=== PATIENT | male | born 1930 | race Asian ===

== ENCOUNTER 2019-08-13 08:30 | Inpatient (IN) | payer MEDICARE, OTHER ==
[~2019-08-13] VITALS: Ht 162.6 cm; Wt 57.8 kg
[2019-08-13 09:02] LABS: Basophils # (auto) 0 10 ^3/uL (0-0.2); Basophils % (auto) 0.4 % (0.0-2.0); Eosinophils # (auto) 0.1 10 ^3/uL (0-0.8); Eosinophils % (auto) 0.8 % (0.0-7.0); Hematocrit 35.9 % (41.0-53.0); Hemoglobin 12.3 g/dL (13.5-17.5); Lymphocytes # (auto) 1.1 10 ^3/uL (0.4-5.4); Lymphocytes % (auto) 14.6 % (10.0-50.0); Mean Corpuscular Hgb Conc. 34.4 g/dL (32.0-36.0); Mean Corpuscular Volume 90.2 fL (80.0-100.0); Monocytes # (auto) 0.4 10 ^3/uL (0-1.3); Monocytes % (auto) 5.5 % (0.0-12.0); Neutrophils # (auto) 6.1 10 ^3/uL (1.6-8.6); Neutrophils % (auto) 78.7 % (37.0-80.0); Nucleated Red Blood Cells % 0.1 %; Platelet Count (auto) 287 10^3/uL (140-450); Red Blood Cells 3.97 10^6/uL (4.5-5.90); Red Cell Distribution Width 13.7 % (11.8-14.3); White Blood Cell 7.8 10^3/uL (4.4-10.8)
[2019-08-13 09:21] LABS: Alanine Aminotransferase 9 U/L (16-61); Albumin 2.6 g/dL (3.4-5.0); Anion Gap 6 (5-15); Aspartate Aminotransferase 6 U/L (15-37); BUN/Creatinine Ratio 20.2; Blood Urea Nitrogen 21 mg/dL (7-18); Calcium 8.1 mg/dL (8.5-10.1); Carbon Dioxide 23 mmol/L (21-32); Chloride 106 mmol/L (98-107); GFR African American 88 mL/min; GFR Non-African American 73 mL/min; Glucose 214 mg/dL (74-106); Potassium 3.7 mmol/L (3.5-5.1); Sodium 135 mmol/L (136-145)
[2019-08-13 09:25] LABS: Alkaline Phosphatase 101 U/L (45-117); Bilirubin, Total 0.6 mg/dL (0.2-1.0); Total Protein 8.4 g/dL (6.4-8.2)
[2019-08-13 09:48] LABS: INR 1.06 (0.9-1.15); Partial Thromboplastin Time 28.5 sec (23.64-32.05)
[2019-08-13] MEDS ORDERED: ACETAMINOPHEN 500 MG TAB PO PRN (12:45)
[2019-08-13] MEDS ORDERED: hydrALAZINE HCL 20 MG/ML VL IV PRN (12:45)
[2019-08-13] MEDS ORDERED: MORPHINE SULF INJ 2 MG/ML SYRINGE 1ML IV PRN ×2 (12:45)
[2019-08-13] MEDS ORDERED: ONDANSETRON HCL 4 MG/2 ML VIAL IV PRN (12:45)
[2019-08-13] MEDS ORDERED: DEXTROSE (50%) 50ML SYRG IV PRN (12:45)
[2019-08-13] MEDS ORDERED: NITROGLYCERIN 0.4 MG SL TAB SL PRN (12:45)
[2019-08-13] MEDS ORDERED: FAMOTIDINE 20 MG TAB PO ONE (13:15)
[2019-08-13] MEDS ORDERED: ASPirin-EC 81 mg tab PO ONE (13:15)
[2019-08-13] MEDS ORDERED: METOPROLOL TARTRATE 25 MG TAB PO ONE (13:15)
[2019-08-13] MEDS ORDERED: LISINOPRIL 10 MG TAB PO ONE (13:15)
[2019-08-13 16:41] LABS: CRP High Sensitivity 0.28 mg/dL (< 0.3)
[2019-08-13] MEDS: InsuLIN REG 1unit/0.01ml Soln (100units/ml) SC SCH ×2 (17:00→22:12)
[2019-08-13] MEDS: ACCU-CHEK COMFORT CURVE STRIP VI SCH ×2 (17:21→22:12)
[2019-08-13] MEDS ORDERED: SITA100T7 PO (20:24)
[2019-08-13] MEDS ORDERED: ATOR20TA50 PO (20:24)
[2019-08-13] MEDS ORDERED: METF-370 PO (20:24)
[2019-08-13] MEDS ORDERED: LOSA-39 PO (20:24)
[2019-08-13] MEDS ORDERED: QUET25TA37 PO (20:24)
[2019-08-13] MEDS ORDERED: FURO20TA3 PO (20:24)
[2019-08-13 22:00] VITALS: BP 109/67
[2019-08-13] MEDS: METOPROLOL TARTRATE 25 MG TAB PO SCH (22:12)
[2019-08-13] MEDS: ATORVASTATIN 20 MG TAB PO SCH (22:12)
[2019-08-14] MEDS: HYDROcodone-ACET 5/325MG TAB PO PRN ×2 (01:30→21:49)
[2019-08-14 05:00] VITALS: BP 90/51
[2019-08-14 06:05] LABS: INR 1.09 (0.9-1.15); Partial Thromboplastin Time 29.9 sec (23.64-32.05)
[2019-08-14 06:09] LABS: BUN/Creatinine Ratio 23.1; Calcium 8.2 mg/dL (8.5-10.1); Potassium 4.4 mmol/L (3.5-5.1)
[2019-08-14 06:22] LABS: Basophils # (auto) 0 10 ^3/uL (0-0.2); Basophils % (auto) 0.2 % (0.0-2.0); Eosinophils # (auto) 0 10 ^3/uL (0-0.8); Eosinophils % (auto) 0.2 % (0.0-7.0); Hematocrit 34.1 % (41.0-53.0); Hemoglobin 11.5 g/dL (13.5-17.5); Lymphocytes % (auto) 10.2 % (10.0-50.0); Mean Corpuscular Hemoglobin 30.4 pg (28.0-32.0); Mean Corpuscular Hgb Conc. 33.7 g/dL (32.0-36.0); Mean Corpuscular Volume 90.5 fL (80.0-100.0); Monocytes # (auto) 0.4 10 ^3/uL (0-1.3); Monocytes % (auto) 4.4 % (0.0-12.0); Neutrophils # (auto) 7.9 10 ^3/uL (1.6-8.6); Nucleated Red Blood Cells % 0.1 %; Platelet Count (auto) 302 10^3/uL (140-450); Red Blood Cells 3.76 10^6/uL (4.5-5.90); Red Cell Distribution Width 13.8 % (11.8-14.3); White Blood Cell 9.3 10^3/uL (4.4-10.8)
[2019-08-14] MEDS: ACCU-CHEK COMFORT CURVE STRIP VI SCH ×4 (06:30→21:40)
[2019-08-14] MEDS: InsuLIN REG 1unit/0.01ml Soln (100units/ml) SC SCH ×4 (06:33→21:40)
[2019-08-14 08:00] VITALS: BP 115/70
[2019-08-14] MEDS ORDERED: FAMOTIDINE 20 MG TAB PO SCH (10:00)
[2019-08-14] MEDS: LISINOPRIL 10 MG TAB PO SCH (10:15)
[2019-08-14] MEDS: ASPirin-EC 81 mg tab PO SCH (10:17)
[2019-08-14] MEDS: METOPROLOL TARTRATE 25 MG TAB PO SCH ×2 (10:17→21:39)
[2019-08-14 11:52] VITALS: BP 134/72
[2019-08-14 16:46] VITALS: BP 138/73
[2019-08-14 21:03] LABS: Urine Bacteria MOD /hpf (None Seen); Urine Blood TRACE /uL (Negative); Urine Budding Yeast FEW /hpf (None Seen); Urine Specific Gravity 1.019 (1.001-1.035); Urine WBC 145 /hpf (0 - 3); Urine WBC Clumps PRESENT /hpf (None Seen)
[2019-08-14] MEDS: ATORVASTATIN 20 MG TAB PO SCH (21:39)
[2019-08-14] MEDS: cefTRIAXone 1GM/50ML D5W 50 ML IV SCH (23:29)
[2019-08-15 06:16] VITALS: BP 109/65
[2019-08-15] MEDS: ACCU-CHEK COMFORT CURVE STRIP VI SCH ×2 (06:30→11:30)
[2019-08-15] MEDS: InsuLIN REG 1unit/0.01ml Soln (100units/ml) SC SCH ×2 (06:52→11:30)
[2019-08-15 08:00] VITALS: BP 101/61
[2019-08-15 09:00] VITALS: BP 101/61
[2019-08-15] MEDS: cefTRIAXone 1GM/50ML D5W 50 ML IV SCH (09:55)
[2019-08-15] MEDS: ASPirin-EC 81 mg tab PO SCH (09:55)
[2019-08-15] MEDS: LISINOPRIL 10 MG TAB PO SCH (09:55)
[2019-08-15] MEDS: METOPROLOL TARTRATE 25 MG TAB PO SCH (09:56)
[2019-08-15] MEDS ORDERED: FAMOTIDINE 20 MG TAB PO SCH (10:00)
== END 2019-08-15 12:20 | disposition left against medical advice (07) | DRG 303 ==
LOC: ER 08:30 → TELE 08:31 → EDBD 08:31 → TELE-CENTR 16:33
PROVIDERS: ADMIT Nurse Practitioner Acute Care; ATTEND Family Medicine
DX: I25.10 Atherosclerotic heart disease of native coronary artery without angina pectoris (principal); I24.9 Acute ischemic heart disease, unspecified; E44.0 Moderate protein-calorie malnutrition; D68.59 Other primary thrombophilia; N39.0 Urinary tract infection, site not specified; I48.91 Unspecified atrial fibrillation; Z68.21 Body mass index [BMI] 21.0-21.9, adult; E78.00 Pure hypercholesterolemia, unspecified; E11.9 Type 2 diabetes mellitus without complications; E78.5 Hyperlipidemia, unspecified; H91.90 Unspecified hearing loss, unspecified ear; I10 Essential (primary) hypertension; Z53.29 Procedure and treatment not carried out because of patient's decision for other reasons; L89.151 Pressure ulcer of sacral region, stage 1; Z79.84 Long term (current) use of oral hypoglycemic drugs
CPT/HCPCS: 36415; 71045; 80048; 80053; 80061; 81001; 82962; 83036; 83735; 83880; 84443; 84484; 85025; 85379; 85610; 85730; 86141; 87086; 87088; 87186; 93005; 93306; 93970; G0378; J0696; J1815; J2405